=== PATIENT | male | born 1995 | race Caucasian/White ===

== ENCOUNTER 2017-10-11 18:42 | Emergency (ER) | payer OTHER ==
[2017-10-11 18:51] VITALS: BP 150/85; PULSE 60; TEMP 97.8; BMI 23.5
--- NOTE | 2017-10-11 18:52 | PDOC ---
Rapid Medical Evaluation Chief Complaint: Wound Time Seen by Provider: 10/11/17 18:48 Medical Evaluation: 10/11/17 18:48 Pt presents with complaint of : left boil x 1 month, no fever, no drainage On brief exam: + gynecomastia of left breast, - marijuana, no steroid use I have ordered the following: none Pt will go to the Emergency Dept for further workup Discharge Disposition - Diagnosis Gynecomastia, male - Referrals - Patient Instructions - Post Discharge Activity
== END 2017-10-11 21:17 | disposition left against medical advice (07) ==
LOC: JERFT 18:42
DX: N62 Hypertrophy of breast (principal)
CPT/HCPCS: 99281-25

== ENCOUNTER 2021-12-03 10:34 | Emergency (ER) | payer OTHER ==
[2021-12-03 10:40] VITALS: BP 144/80; PULSE 77; TEMP 99.1; BMI 27.6
== END 2021-12-03 11:32 | disposition home or self-care (01) ==
LOC: JERFT 10:34
DX: B01.9 Varicella without complication (principal)
CPT/HCPCS: 99281-25